=== PATIENT | female | born 1980 | race African-American/Black ===

== ENCOUNTER 2017-03-16 07:57 | Emergency (ER) | payer MEDICAID ==
[~2017-03-16] VITALS: Ht 170.2 cm; Wt 86.2 kg
[2017-03-16 08:00] VITALS: BP 137/81
[2017-03-16] MEDS ORDERED: KETOROLAC TROMETH 60MG/2ML VIAL IM ONE (09:00)
[2017-03-16] MEDS ORDERED: IBUPROFEN 800 MG TAB PO ONE (09:00)
== END 2017-03-16 09:47 | disposition home or self-care (01) ==
LOC: ER 07:57
DX: S39.012A Strain of muscle, fascia and tendon of lower back, initial encounter (principal); S76.012A Strain of muscle, fascia and tendon of left hip, initial encounter; S46.911A Strain of unspecified muscle, fascia and tendon at shoulder and upper arm level, right arm, initial encounter; W01.0XXA Fall on same level from slipping, tripping and stumbling without subsequent striking against object, initial encounter; Y93.89 Activity, other specified; Y92.89 Other specified places as the place of occurrence of the external cause; Y99.8 Other external cause status